=== PATIENT | male | born 1960 | race Caucasian/White ===

== ENCOUNTER 2022-05-16 17:27 | Inpatient (IN) | payer OTHER ==
[2022-05-16 18:46] VITALS: BMI 19.8
[2022-05-16] MEDS ORDERED: IBUPROFEN 600 MG TABLET (FP) PO PRN (20:13)
[2022-05-16] MEDS ORDERED: BISMUTH SUBSALICYLATE 524 MG/30 ML PO PRN (20:13)
[2022-05-16] MEDS ORDERED: LOPERAMIDE HCL 2 MG CAPSULE PO PRN (20:13)
[2022-05-16] MEDS ORDERED: DICYCLOMINE HCL 10 MG CAPSULE PO PRN (20:13)
[2022-05-16] MEDS ORDERED: NALOXONE HCL (KLOXXADO) 8 MG SPRAY NS PRN (20:13)
[2022-05-16] MEDS ORDERED: BENZOCAINE/MENTHOL (CHLORASEPTIC ) LOZENGE MM PRN (20:13)
[2022-05-16] MEDS ORDERED: ACETAMINOPHEN 325 MG TABLET (FP) PO PRN ×2 (20:13)
[2022-05-16] MEDS ORDERED: ONDANSETRON *ODT* 4 MG TABLET SL PRN (20:13)
[2022-05-16] MEDS ORDERED: MAG HYDROX/AL HYDROX/SIMETH 30 ML UNIT-DOSE CUP PO PRN (20:13)
[2022-05-16] MEDS ORDERED: POLYETHYLENE GLYCOL (HEALTHYLAX) 3350 17 GM PACKET PO PRN (20:13)
[2022-05-16] MEDS ORDERED: MAGNESIUM HYDROX 2400MG/30ML ORAL SUSPENSION 30 ML CUP PO PRN (20:13)
[2022-05-16] MEDS ORDERED: IBUPROFEN 400 MG TABLET (FP) PO PRN (20:13)
[2022-05-16] MEDS: MELATONIN 5 MG TABLETS PO SCH (22:11)
[2022-05-16] MEDS: THIAMINE HCL 100 MG TABLET (FP) PO SCH (22:11)
[2022-05-16] MEDS: METHOCARBAMOL 500 MG TABLET PO PRN (22:11)
[2022-05-16] MEDS: PRENATAL VITAMINS W/ FOLIC ACID TABLET (FP) PO SCH (22:12)
[2022-05-17] MEDS: METHOCARBAMOL 500 MG TABLET PO PRN (05:13)
[2022-05-17] MEDS: hydrOXYzine PAMOATE 25 MG CAPSULE (FP) PO PRN (05:13)
[2022-05-17] MEDS: NICOTINE 21 MG/24 HOURS TOPICAL PATCH TD SCH (10:19)
[2022-05-17] MEDS: PRENATAL VITAMINS W/ FOLIC ACID TABLET (FP) PO SCH (10:19)
[2022-05-17 10:44] LABS: HEMATOCRIT 37.7 % (35.4-49); HEMOGLOBIN 12.3 GM/dL (11.7-16.9); MCH 32.7 pg (25.7-33.7); MCHC 32.6 g/dl (32.0-35.9); MEAN CELL VOLUME 100.4 fl (80-96); MEAN PLT VOLUME 7.8 fl (7.5-11.1); PLATELET COUNT 280 10^3/uL (134-434); RBC 3.75 M/mm3 (4.00-5.60); RDW 14.4 % (11.9-15.9); WHITE BLOOD COUNT 3.9 K/mm3 (4.0-10.0)
[2022-05-17 10:49] LABS: ALBUMIN 3.2 g/dl (3.4-5.0); CALCIUM 9.2 mg/dL (8.5-10.1); CREATININE 0.9 mg/dL (0.55-1.3)
[2022-05-17 10:51] LABS: TOT PROT 6.7 g/dl (6.4-8.2)
[2022-05-17 10:54] LABS: BILIRUBIN,TOTAL 1.1 mg/dL (0.2-1)
[2022-05-17] MEDS: NIFEdipine E.R. 30 MG TABLET PO SCH (13:30)
[2022-05-17] MEDS ORDERED: cloNIDine HCL 0.1 MG TABLET PO ONE (18:08)
[2022-05-17] MEDS: MELATONIN 5 MG TABLETS PO SCH (22:17)
[2022-05-17] MEDS: THIAMINE HCL 100 MG TABLET (FP) PO SCH (22:17)
[2022-05-18] MEDS ORDERED: diazePAM 5 MG TABLET PO PRN (09:36)
[2022-05-18] MEDS: PRENATAL VITAMINS W/ FOLIC ACID TABLET (FP) PO SCH (10:17)
[2022-05-18] MEDS: NICOTINE 21 MG/24 HOURS TOPICAL PATCH TD SCH (10:17)
[2022-05-18] MEDS: NIFEdipine E.R. 30 MG TABLET PO SCH (10:17)
[2022-05-18] MEDS: diazePAM 5 MG TABLET PO SCH ×3 (10:18→22:39)
[2022-05-18] MEDS: hydrOXYzine PAMOATE 25 MG CAPSULE (FP) PO PRN (17:45)
[2022-05-18] MEDS: THIAMINE HCL 100 MG TABLET (FP) PO SCH (22:39)
[2022-05-18] MEDS: MELATONIN 5 MG TABLETS PO SCH (22:39)
[2022-05-19] MEDS: diazePAM 5 MG TABLET PO SCH ×4 (05:44→22:11)
[2022-05-19] MEDS: PRENATAL VITAMINS W/ FOLIC ACID TABLET (FP) PO SCH (10:18)
[2022-05-19] MEDS: NICOTINE 21 MG/24 HOURS TOPICAL PATCH TD SCH (10:18)
[2022-05-19] MEDS: NIFEdipine E.R. 30 MG TABLET PO SCH (10:18)
[2022-05-19] MEDS: MELATONIN 5 MG TABLETS PO SCH (22:11)
[2022-05-19] MEDS: METHOCARBAMOL 500 MG TABLET PO PRN (22:11)
[2022-05-19] MEDS: THIAMINE HCL 100 MG TABLET (FP) PO SCH (22:11)
[2022-05-20] MEDS: diazePAM 5 MG TABLET PO SCH ×3 (06:01→22:04)
[2022-05-20] MEDS: NIFEdipine E.R. 30 MG TABLET PO SCH (10:06)
[2022-05-20] MEDS: PRENATAL VITAMINS W/ FOLIC ACID TABLET (FP) PO SCH (10:06)
[2022-05-20] MEDS: NICOTINE 21 MG/24 HOURS TOPICAL PATCH TD SCH (10:06)
[2022-05-20] MEDS: NICOTINE 10 MG CARTRIDGE (INHALER) IH PRN (10:07)
[2022-05-20] MEDS: MELATONIN 5 MG TABLETS PO SCH (22:05)
[2022-05-20] MEDS: THIAMINE HCL 100 MG TABLET (FP) PO SCH (22:05)
[2022-05-21] MEDS: diazePAM 5 MG TABLET PO SCH ×2 (05:50→17:34)
[2022-05-21] MEDS: PRENATAL VITAMINS W/ FOLIC ACID TABLET (FP) PO SCH (10:12)
[2022-05-21] MEDS: NIFEdipine E.R. 30 MG TABLET PO SCH (10:12)
[2022-05-21] MEDS: NICOTINE 21 MG/24 HOURS TOPICAL PATCH TD SCH (10:12)
[2022-05-21] MEDS: hydrOXYzine PAMOATE 25 MG CAPSULE (FP) PO PRN (10:14)
[2022-05-21] MEDS: METHOCARBAMOL 500 MG TABLET PO PRN (10:14)
[2022-05-21] MEDS: THIAMINE HCL 100 MG TABLET (FP) PO SCH (23:02)
[2022-05-21] MEDS: MELATONIN 5 MG TABLETS PO SCH (23:02)
[2022-05-22] MEDS: NICOTINE 10 MG CARTRIDGE (INHALER) IH PRN (05:41)
[2022-05-22] MEDS ORDERED: diazePAM 5 MG TABLET PO ONE (06:00)
[2022-05-22 10:06] VITALS: BP 144/98; PULSE 95; RESP 16; TEMP 97
[2022-05-22] MEDS: PRENATAL VITAMINS W/ FOLIC ACID TABLET (FP) PO SCH (10:13)
[2022-05-22] MEDS: NIFEdipine E.R. 30 MG TABLET PO SCH (10:13)
[2022-05-22] MEDS: NICOTINE 21 MG/24 HOURS TOPICAL PATCH TD SCH (10:13)
== END 2022-05-22 11:24 | disposition other institution (70) | DRG 774 ==
LOC: YASAS 17:27 → UNDOADMIN 21:32 → Y6N 21:32
PROVIDERS: ADMIT Allergy & Immunology; ATTEND Surgery
PROC: HZ2ZZZZ Detoxification Services for Substance Abuse Treatment (ICD-10-PCS; principal; 2022-05-16)
DX: F10.230 Alcohol dependence with withdrawal, uncomplicated (principal); F10.220 Alcohol dependence with intoxication, uncomplicated; F14.20 Cocaine dependence, uncomplicated; F17.210 Nicotine dependence, cigarettes, uncomplicated; I10 Essential (primary) hypertension; M19.90 Unspecified osteoarthritis, unspecified site; Z99.89 Dependence on other enabling machines and devices; Z87.19 Personal history of other diseases of the digestive system
CPT/HCPCS: 36415; 80053; 85027; 86780; 87811; C9803-CS; U0003; U0005

== ENCOUNTER 2022-05-22 11:30 | Inpatient (IN) | payer OTHER ==
[2022-05-22] MEDS ORDERED: NICOTINE POLACRILEX 2 MG GUM BUC PRN (14:58)
[2022-05-22] MEDS ORDERED: ACETAMINOPHEN 325 MG TABLET (FP) PO PRN (14:58)
[2022-05-22] MEDS ORDERED: P-EPHED 60MG/TRIPROLIDI 2.5MG TABLET PO PRN (14:58)
[2022-05-22] MEDS ORDERED: MAGNESIUM HYDROX 2400MG/30ML ORAL SUSPENSION 30 ML CUP PO PRN (14:58)
[2022-05-22] MEDS ORDERED: MAGNESIUM CITRATE 300 ML BOTTLE PO PRN (14:58)
[2022-05-22] MEDS ORDERED: LOPERAMIDE HCL 2 MG CAPSULE PO PRN (14:58)
[2022-05-22] MEDS ORDERED: guaiFENesin 200 MG/10 ML 10 ML UNIT-DOSE CUPS PO PRN (14:58)
[2022-05-22] MEDS ORDERED: MAG HYDROX/AL HYDROX/SIMETH 30 ML UNIT-DOSE CUP PO PRN (14:58)
[2022-05-22] MEDS ORDERED: NICOTINE 7 MG/24 HOURS TOPICAL PATCH TD PRN (14:58)
[2022-05-22] MEDS ORDERED: BENZOCAINE/MENTHOL (CHLORASEPTIC ) LOZENGE MM PRN (14:58)
[2022-05-22] MEDS: NICOTINE 10 MG CARTRIDGE (INHALER) IH PRN (16:26)
[2022-05-22] MEDS: THIAMINE HCL 100 MG TABLET (FP) PO SCH (21:12)
[2022-05-22] MEDS: MELATONIN 5 MG TABLETS PO SCH (21:12)
[2022-05-22] MEDS: IBUPROFEN 400 MG TABLET (FP) PO PRN (21:13)
[2022-05-23] MEDS: FOLIC ACID 1 MG TABLET (FP) PO SCH (09:46)
[2022-05-23] MEDS: NICOTINE 14 MG/24 HOURS TOPICAL PATCH TD SCH (09:46)
[2022-05-23] MEDS: THIAMINE HCL 100 MG TABLET (FP) PO SCH ×2 (09:47→21:33)
[2022-05-23] MEDS: NIFEdipine E.R. 30 MG TABLET PO SCH (09:47)
[2022-05-23] MEDS: PRENATAL VITAMINS W/ FOLIC ACID TABLET (FP) PO SCH (09:47)
[2022-05-23] MEDS ORDERED: MULTIVITAMIN WITH MINERALS PO SCH (10:00)
[2022-05-23] MEDS ORDERED: PRENATAL VITAMINS W/ FOLIC ACID TABLET (FP) PO SCH (10:00)
[2022-05-23] MEDS ORDERED: [UNRECOGNIZED DRUG - OTHER] PO SCH (10:00)
[2022-05-23] MEDS: MELATONIN 5 MG TABLETS PO SCH (21:33)
[2022-05-23] MEDS: IBUPROFEN 400 MG TABLET (FP) PO PRN (21:34)
[2022-05-24] MEDS: NICOTINE 14 MG/24 HOURS TOPICAL PATCH TD SCH (10:10)
[2022-05-24] MEDS: FOLIC ACID 1 MG TABLET (FP) PO SCH (10:10)
[2022-05-24] MEDS: THIAMINE HCL 100 MG TABLET (FP) PO SCH ×2 (10:11→21:46)
[2022-05-24] MEDS: NIFEdipine E.R. 30 MG TABLET PO SCH (10:11)
[2022-05-24] MEDS: PRENATAL VITAMINS W/ FOLIC ACID TABLET (FP) PO SCH (10:11)
[2022-05-24] MEDS: IBUPROFEN 400 MG TABLET (FP) PO PRN (10:12)
[2022-05-24] MEDS: NICOTINE 10 MG CARTRIDGE (INHALER) IH PRN (16:34)
[2022-05-24] MEDS: MELATONIN 5 MG TABLETS PO SCH (21:45)
[2022-05-25] MEDS: NICOTINE 14 MG/24 HOURS TOPICAL PATCH TD SCH (10:16)
[2022-05-25] MEDS: NIFEdipine E.R. 30 MG TABLET PO SCH (10:17)
[2022-05-25] MEDS: PRENATAL VITAMINS W/ FOLIC ACID TABLET (FP) PO SCH (10:17)
[2022-05-25] MEDS: THIAMINE HCL 100 MG TABLET (FP) PO SCH ×2 (10:17→21:23)
[2022-05-25] MEDS: FOLIC ACID 1 MG TABLET (FP) PO SCH (10:17)
[2022-05-25] MEDS: IBUPROFEN 400 MG TABLET (FP) PO PRN ×2 (10:18→21:23)
[2022-05-25] MEDS: MELATONIN 5 MG TABLETS PO SCH (21:23)
[2022-05-25] MEDS: hydrOXYzine PAMOATE 25 MG CAPSULE (FP) PO PRN (21:23)
[2022-05-26] MEDS: FOLIC ACID 1 MG TABLET (FP) PO SCH (09:53)
[2022-05-26] MEDS: NICOTINE 14 MG/24 HOURS TOPICAL PATCH TD SCH (09:53)
[2022-05-26] MEDS: THIAMINE HCL 100 MG TABLET (FP) PO SCH ×2 (09:54→21:10)
[2022-05-26] MEDS: NIFEdipine E.R. 30 MG TABLET PO SCH (09:54)
[2022-05-26] MEDS: PRENATAL VITAMINS W/ FOLIC ACID TABLET (FP) PO SCH (09:54)
[2022-05-26] MEDS: IBUPROFEN 400 MG TABLET (FP) PO PRN ×2 (09:55→21:10)
[2022-05-26] MEDS: MELATONIN 5 MG TABLETS PO SCH (21:10)
[2022-05-27] MEDS: FOLIC ACID 1 MG TABLET (FP) PO SCH (10:20)
[2022-05-27] MEDS: NIFEdipine E.R. 30 MG TABLET PO SCH (10:20)
[2022-05-27] MEDS: PRENATAL VITAMINS W/ FOLIC ACID TABLET (FP) PO SCH (10:20)
[2022-05-27] MEDS: NICOTINE 14 MG/24 HOURS TOPICAL PATCH TD SCH (10:20)
[2022-05-27] MEDS: IBUPROFEN 400 MG TABLET (FP) PO PRN ×2 (10:20→21:21)
[2022-05-27] MEDS: THIAMINE HCL 100 MG TABLET (FP) PO SCH ×2 (10:20→21:19)
[2022-05-27] MEDS: NICOTINE 10 MG CARTRIDGE (INHALER) IH PRN (10:31)
[2022-05-27] MEDS: hydrOXYzine PAMOATE 25 MG CAPSULE (FP) PO PRN (21:19)
[2022-05-27] MEDS: MELATONIN 5 MG TABLETS PO SCH (21:19)
[2022-05-28] MEDS: FOLIC ACID 1 MG TABLET (FP) PO SCH (10:09)
[2022-05-28] MEDS: PRENATAL VITAMINS W/ FOLIC ACID TABLET (FP) PO SCH (10:10)
[2022-05-28] MEDS: THIAMINE HCL 100 MG TABLET (FP) PO SCH ×2 (10:10→21:05)
[2022-05-28] MEDS: NICOTINE 14 MG/24 HOURS TOPICAL PATCH TD SCH (10:10)
[2022-05-28] MEDS: NIFEdipine E.R. 30 MG TABLET PO SCH (10:14)
[2022-05-28] MEDS: IBUPROFEN 400 MG TABLET (FP) PO PRN ×2 (10:14→21:06)
[2022-05-28 10:23] LABS: BLOOD UREA NITROGEN 20.5 mg/dL (7-18)
[2022-05-28 10:26] LABS: CREATININE 0.9 mg/dL (0.55-1.3)
[2022-05-28 10:27] LABS: TOT PROT 7.6 g/dl (6.4-8.2)
[2022-05-28 11:19] LABS: ALBUMIN 3.8 g/dl (3.4-5.0); BILIRUBIN,TOTAL 0.3 mg/dL (0.2-1)
[2022-05-28] MEDS ORDERED: LACTULOSE 20 GM/30 ML UDC (FOR ORAL USE ONLY) PO PRN (13:06)
[2022-05-28] MEDS ORDERED: SODIUM POLYSTYRENE SULFONATE 15 GM/60 ML BOTTLE PO ONE (13:45)
[2022-05-28] MEDS: LACTULOSE 20 GM/30 ML UDC (FOR ORAL USE ONLY) PO SCH ×2 (15:42→21:05)
[2022-05-28] MEDS: hydrOXYzine PAMOATE 25 MG CAPSULE (FP) PO PRN (21:05)
[2022-05-28] MEDS: MELATONIN 5 MG TABLETS PO SCH (21:05)
[2022-05-29] MEDS: LACTULOSE 20 GM/30 ML UDC (FOR ORAL USE ONLY) PO SCH ×3 (06:35→21:17)
[2022-05-29] MEDS: NICOTINE 10 MG CARTRIDGE (INHALER) IH PRN (08:34)
[2022-05-29] MEDS: PRENATAL VITAMINS W/ FOLIC ACID TABLET (FP) PO SCH (10:13)
[2022-05-29] MEDS: THIAMINE HCL 100 MG TABLET (FP) PO SCH ×2 (10:13→21:17)
[2022-05-29] MEDS: NIFEdipine E.R. 30 MG TABLET PO SCH (10:13)
[2022-05-29] MEDS: NICOTINE 14 MG/24 HOURS TOPICAL PATCH TD SCH (10:13)
[2022-05-29] MEDS: FOLIC ACID 1 MG TABLET (FP) PO SCH (10:13)
[2022-05-29] MEDS: IBUPROFEN 400 MG TABLET (FP) PO PRN ×2 (10:15→21:18)
[2022-05-29] MEDS: MELATONIN 5 MG TABLETS PO SCH (21:17)
[2022-05-29] MEDS: hydrOXYzine PAMOATE 25 MG CAPSULE (FP) PO PRN (21:17)
[2022-05-30] MEDS: LACTULOSE 20 GM/30 ML UDC (FOR ORAL USE ONLY) PO SCH ×3 (06:49→21:22)
[2022-05-30] MEDS: NICOTINE 14 MG/24 HOURS TOPICAL PATCH TD SCH (09:40)
[2022-05-30] MEDS: FOLIC ACID 1 MG TABLET (FP) PO SCH (09:40)
[2022-05-30] MEDS: THIAMINE HCL 100 MG TABLET (FP) PO SCH (09:41)
[2022-05-30] MEDS: PRENATAL VITAMINS W/ FOLIC ACID TABLET (FP) PO SCH (09:41)
[2022-05-30] MEDS: NIFEdipine E.R. 30 MG TABLET PO SCH (09:41)
[2022-05-30] MEDS: MELATONIN 5 MG TABLETS PO SCH (21:22)
[2022-05-30] MEDS: IBUPROFEN 400 MG TABLET (FP) PO PRN (21:24)
[2022-05-31] MEDS: LACTULOSE 20 GM/30 ML UDC (FOR ORAL USE ONLY) PO SCH ×3 (06:31→21:20)
[2022-05-31] MEDS: NICOTINE 14 MG/24 HOURS TOPICAL PATCH TD SCH (09:51)
[2022-05-31] MEDS: PRENATAL VITAMINS W/ FOLIC ACID TABLET (FP) PO SCH (09:51)
[2022-05-31] MEDS: FOLIC ACID 1 MG TABLET (FP) PO SCH (09:51)
[2022-05-31] MEDS: NIFEdipine E.R. 30 MG TABLET PO SCH (09:51)
[2022-05-31] MEDS: IBUPROFEN 400 MG TABLET (FP) PO PRN ×2 (09:52→21:20)
[2022-05-31] MEDS: THIAMINE HCL 100 MG TABLET (FP) PO SCH (09:52)
[2022-05-31] MEDS: MELATONIN 5 MG TABLETS PO SCH (21:19)
[2022-05-31] MEDS: hydrOXYzine PAMOATE 25 MG CAPSULE (FP) PO PRN (21:19)
[2022-06-01] MEDS: NICOTINE 10 MG CARTRIDGE (INHALER) IH PRN (06:29)
[2022-06-01] MEDS: LACTULOSE 20 GM/30 ML UDC (FOR ORAL USE ONLY) PO SCH ×3 (06:30→21:20)
[2022-06-01] MEDS: IBUPROFEN 400 MG TABLET (FP) PO PRN ×2 (06:31→21:21)
[2022-06-01] MEDS: FOLIC ACID 1 MG TABLET (FP) PO SCH (10:00)
[2022-06-01] MEDS: PRENATAL VITAMINS W/ FOLIC ACID TABLET (FP) PO SCH (10:00)
[2022-06-01] MEDS: NICOTINE 14 MG/24 HOURS TOPICAL PATCH TD SCH (10:00)
[2022-06-01] MEDS: NIFEdipine E.R. 30 MG TABLET PO SCH (10:01)
[2022-06-01] MEDS: THIAMINE HCL 100 MG TABLET (FP) PO SCH (10:01)
[2022-06-01] MEDS: MELATONIN 5 MG TABLETS PO SCH (21:20)
[2022-06-01] MEDS: hydrOXYzine PAMOATE 25 MG CAPSULE (FP) PO PRN (21:21)
[2022-06-02] MEDS: LACTULOSE 20 GM/30 ML UDC (FOR ORAL USE ONLY) PO SCH ×3 (06:37→21:21)
[2022-06-02] MEDS: NIFEdipine E.R. 30 MG TABLET PO SCH (09:48)
[2022-06-02] MEDS: NICOTINE 14 MG/24 HOURS TOPICAL PATCH TD SCH (09:48)
[2022-06-02] MEDS: FOLIC ACID 1 MG TABLET (FP) PO SCH (09:49)
[2022-06-02] MEDS: PRENATAL VITAMINS W/ FOLIC ACID TABLET (FP) PO SCH (09:49)
[2022-06-02] MEDS: THIAMINE HCL 100 MG TABLET (FP) PO SCH (09:49)
[2022-06-02] MEDS: IBUPROFEN 400 MG TABLET (FP) PO PRN ×2 (09:50→21:23)
[2022-06-02] MEDS: MELATONIN 5 MG TABLETS PO SCH (21:21)
[2022-06-02] MEDS: hydrOXYzine PAMOATE 25 MG CAPSULE (FP) PO PRN (21:22)
[2022-06-03] MEDS: LACTULOSE 20 GM/30 ML UDC (FOR ORAL USE ONLY) PO SCH ×3 (06:31→21:41)
[2022-06-03] MEDS: THIAMINE HCL 100 MG TABLET (FP) PO SCH (09:33)
[2022-06-03] MEDS: FOLIC ACID 1 MG TABLET (FP) PO SCH (09:33)
[2022-06-03] MEDS: NICOTINE 14 MG/24 HOURS TOPICAL PATCH TD SCH (09:34)
[2022-06-03] MEDS: PRENATAL VITAMINS W/ FOLIC ACID TABLET (FP) PO SCH (09:34)
[2022-06-03] MEDS: NIFEdipine E.R. 30 MG TABLET PO SCH (09:34)
[2022-06-03] MEDS: IBUPROFEN 400 MG TABLET (FP) PO PRN ×2 (09:36→21:40)
[2022-06-03] MEDS: MELATONIN 5 MG TABLETS PO SCH (21:40)
[2022-06-03] MEDS: hydrOXYzine PAMOATE 25 MG CAPSULE (FP) PO PRN (21:40)
[2022-06-04] MEDS: LACTULOSE 20 GM/30 ML UDC (FOR ORAL USE ONLY) PO SCH ×3 (06:59→21:12)
[2022-06-04] MEDS: IBUPROFEN 400 MG TABLET (FP) PO PRN ×2 (07:01→21:13)
[2022-06-04] MEDS: NICOTINE 10 MG CARTRIDGE (INHALER) IH PRN (07:02)
[2022-06-04] MEDS: NICOTINE 14 MG/24 HOURS TOPICAL PATCH TD SCH (10:06)
[2022-06-04] MEDS: FOLIC ACID 1 MG TABLET (FP) PO SCH (10:06)
[2022-06-04] MEDS: PRENATAL VITAMINS W/ FOLIC ACID TABLET (FP) PO SCH (10:07)
[2022-06-04] MEDS: THIAMINE HCL 100 MG TABLET (FP) PO SCH (10:07)
[2022-06-04] MEDS: NIFEdipine E.R. 30 MG TABLET PO SCH (10:07)
[2022-06-04] MEDS: hydrOXYzine PAMOATE 25 MG CAPSULE (FP) PO PRN (21:12)
[2022-06-04] MEDS: MELATONIN 5 MG TABLETS PO SCH (21:12)
[2022-06-05] MEDS: LACTULOSE 20 GM/30 ML UDC (FOR ORAL USE ONLY) PO SCH ×3 (06:22→21:21)
[2022-06-05] MEDS: IBUPROFEN 400 MG TABLET (FP) PO PRN ×2 (06:22→21:21)
[2022-06-05] MEDS: FOLIC ACID 1 MG TABLET (FP) PO SCH (09:00)
[2022-06-05] MEDS: THIAMINE HCL 100 MG TABLET (FP) PO SCH (09:00)
[2022-06-05] MEDS: NICOTINE 14 MG/24 HOURS TOPICAL PATCH TD SCH (09:00)
[2022-06-05] MEDS: PRENATAL VITAMINS W/ FOLIC ACID TABLET (FP) PO SCH (09:00)
[2022-06-05] MEDS: NIFEdipine E.R. 30 MG TABLET PO SCH (09:00)
[2022-06-05] MEDS: NICOTINE 10 MG CARTRIDGE (INHALER) IH PRN (09:38)
[2022-06-05] MEDS: hydrOXYzine PAMOATE 25 MG CAPSULE (FP) PO PRN (21:21)
[2022-06-05] MEDS: MELATONIN 5 MG TABLETS PO SCH (21:22)
[2022-06-06] MEDS: LACTULOSE 20 GM/30 ML UDC (FOR ORAL USE ONLY) PO SCH (06:23)
[2022-06-06] MEDS: NICOTINE 10 MG CARTRIDGE (INHALER) IH PRN (06:24)
[2022-06-06] MEDS: IBUPROFEN 400 MG TABLET (FP) PO PRN (06:25)
[2022-06-06 06:38] VITALS: RESP 16; TEMP 96.9
[2022-06-06] MEDS: FOLIC ACID 1 MG TABLET (FP) PO SCH (09:05)
[2022-06-06] MEDS: THIAMINE HCL 100 MG TABLET (FP) PO SCH (09:05)
[2022-06-06] MEDS: PRENATAL VITAMINS W/ FOLIC ACID TABLET (FP) PO SCH (09:06)
[2022-06-06] MEDS: NIFEdipine E.R. 30 MG TABLET PO SCH (09:06)
[2022-06-06] MEDS: NICOTINE 14 MG/24 HOURS TOPICAL PATCH TD SCH (09:06)
[2022-06-06 09:07] VITALS: BP 128/90; PULSE 104
== END 2022-06-06 09:14 | disposition home or self-care (01) | DRG 772 ==
LOC: YASAS 11:30 → Y3E 11:31
PROVIDERS: ADMIT Allergy & Immunology; ATTEND Psychiatry & Neurology Pain Medicine
PROC: HZ42ZZZ Group Counseling for Substance Abuse Treatment, Cognitive-Behavioral (ICD-10-PCS; principal; 2022-05-22)
DX: F10.20 Alcohol dependence, uncomplicated (principal); F14.20 Cocaine dependence, uncomplicated; F17.210 Nicotine dependence, cigarettes, uncomplicated; I10 Essential (primary) hypertension; R79.89 Other specified abnormal findings of blood chemistry; Z99.89 Dependence on other enabling machines and devices; Z87.19 Personal history of other diseases of the digestive system
CPT/HCPCS: 36415; 80053; 82140; 84132